=== PATIENT | female | born 1970 | race Caucasian/White ===

== ENCOUNTER 2025-01-05 09:35 | Day surgery (SDC) | payer OTHER ==
[~2025-01-05] VITALS: Ht 162.6 cm; Wt 80.5 kg
[~2025-01-05 09:35] MED LIST: Amlodipine Besyl5 MG PO; Diflucan150 MG; LOSARTAN POTASS50 MG PO; TACROLIMUS30 GM TP; Zolpidem Tartrat5 MG PO
[2025-01-05] MEDS ORDERED: NATAZIA 28 TAB1 EACH PO (10:17)
[2025-01-05] MEDS ORDERED: PROG100 PO (10:17)
[2025-01-05] MEDS ORDERED: Flurbiprofen100 MG (10:18)
[2025-01-05] MEDS ORDERED: AMIT25 PO (10:18)
[2025-01-05] MEDS ORDERED: VALA500 PO (10:19)
[2025-01-05] MEDS ORDERED: CeFAZolin Sodium 2,000 MG VIAL ONE (10:26)
[2025-01-05] MEDS ORDERED: FentaNYL Citrate 50 MCG/ML 2 ML Injection ONE (10:48)
[2025-01-05] MEDS ORDERED: Midazolam HCl 1MG / ML 2ML Vial ONE (10:48)
[2025-01-05] MEDS ORDERED: Ondansetron HCl 2 MG / ML 2ML Vial ONE (10:52)
[2025-01-05] MEDS ORDERED: Dexamethasone Sod Phos 10 MG/ML 1ML VIAL ONE (10:52)
--- NOTE | 2025-01-05 12:25 | NUR ---
01/05/25 1225 ERIC AGUILERA LOCALIZED BLOCK PERFORMED TO R HAND INDEX FINGER BY DR. LOFTON W/10CC LIDO 1% WITH EPI 1:100,000. PT TOLERATED WELL WITH COACHING.
[2025-01-05 12:38] VITALS: BP 130/83
--- NOTE | 2025-01-05 12:39 | NUR ---
01/05/25 Adrianna Arrieta CAPILLARY REFILL LESS THAN 3 SECONDS ON OPERATIVE HAND
== END 2025-01-05 12:58 | disposition home or self-care (01) ==
LOC: ORSCSDS 09:35
PROVIDERS: Orthopaedic Surgery
PROC: 0JBJ0ZZ Excision of Right Hand Subcutaneous Tissue and Fascia, Open Approach (ICD-10-PCS; principal; 2025-01-05 11:00)
DX: S60.450A Superficial foreign body of right index finger, initial encounter (principal); I10 Essential (primary) hypertension; M79.7 Fibromyalgia; Z79.899 Other long term (current) drug therapy
CPT/HCPCS: 88302; J0690; J1100; J2250; J2405; J2704; J3010; J7120